=== PATIENT | male | born 1940 | race Hispanic/Latino ===

== ENCOUNTER → 2019-06-25 | Outpatient (CLI) | payer MEDICARE, OTHER ==
[~2019-06-25] MED LIST: AMOX-429 PO; ASPI-555 PO; ATOR40TA69 PO; BRIM5DRO4 OU; CARB15DR OU; CLOP75TA32 PO; LISI40TA4 PO; VITA1TAB39 PO; [UNRECOGNIZED DRUG - OTHER] PO
== END | disposition home or self-care (01) ==
LOC: RAH 07:11
PROVIDERS: ATTEND Internal Medicine Cardiovascular Disease
DX: I70.0 Atherosclerosis of aorta (principal); I25.10 Atherosclerotic heart disease of native coronary artery without angina pectoris
CPT/HCPCS: 76775

== ENCOUNTER → 2019-07-08 | Outpatient (CLI) | payer MEDICARE ==
[~2019-07-08] MED LIST changes: -AMOX-429 PO; -ASPI-555 PO; -ATOR40TA69 PO; -BRIM5DRO4 OU; -CARB15DR OU; -CLOP75TA32 PO; +IOHEXOL-350 75 ML VIAL IV ONE; -LISI40TA4 PO; -VITA1TAB39 PO; -[UNRECOGNIZED DRUG - OTHER] PO
== END | disposition home or self-care (01) ==
LOC: RAH 08:56
PROVIDERS: ATTEND Internal Medicine Cardiovascular Disease
DX: I25.10 Atherosclerotic heart disease of native coronary artery without angina pectoris (principal); I71.4 Abdominal aortic aneurysm, without rupture; I65.29 Occlusion and stenosis of unspecified carotid artery; Z95.1 Presence of aortocoronary bypass graft
CPT/HCPCS: 70496; 70498; Q9967

== ENCOUNTER 2019-08-06 08:00 | Inpatient (IN) | payer MEDICARE ==
[~2019-08-06] VITALS: Ht 172.7 cm; Wt 65.1 kg
[2019-08-06 09:08] LABS: BASOPHILS % (AUTO) 2.6 % (0.0-5.0); EOSINOPHILS % (AUTO) 6.4 % (0.0-8.0); HEMATOCRIT 38.2 % (42-54); LYMPHOCYTES % (AUTO) 34.1 % (21.0-51.0); MEAN CORPUSCULAR HGB CONC 33.7 g/dL (32.0-36.0); MEAN CORPUSCULAR VOLUME 95.1 fL (79-99); MONOCYTES % (AUTO) 8.1 % (3.0-13.0); NEUTROPHILS % (AUTO) 48.8 % (40.0-77.0); NUCLEATED RED BLOOD CELLS 0.1 % (0.0-0.19); PLATELET COUNT (AUTO) 214 K/uL (130-400); RED BLOOD CELL COUNT(AUTO) 4.01 MIL/uL (4.50-6.20); RED CELL DISTRIBUTION WIDTH 14.7 % (11.0-15.5); WHITE BLOOD COUNT (AUTO) 4.2 K/uL (4.8-10.8)
[2019-08-06 09:09] VITALS: BP 153/73
[2019-08-06 09:14] LABS: CREATININE 0.7 mg/dL (0.5-1.5); POTASSIUM 4.1 mmol/L (3.5-5.1)
[2019-08-06 09:24] LABS: INR 1.14 (0.85-1.15); PARTIAL THROMBOPLASTIN TIME 33.7 SEC (26.3-35.5); PROTHROMBIN TIME 11.9 SEC (9.6-11.6)
[2019-08-06 09:30] LABS: APPEARANCE,URINE Clear (CLEAR); BILIRUBIN,URINE Negative (NEGATIVE); COLOR,URINE Yellow (YELLOW); GLUCOSE, URINE (UA) Negative (NEGATIVE); KETONES,URINE Negative (NEGATIVE); LEUKOCYTE ESTERASE ,URINE Negative (NEGATIVE); NITRATE,URINE Negative (NEGATIVE); OCCULT BLOOD,URINE Trace (NEGATIVE); PROTEIN,URINE Negative (NEGATIVE)
[2019-08-06 09:48] LABS: BACTERIA,URINE Rare /HPF (None Seen); RBC,URINE 0-1 /HPF (0-1); SQUAMOUS EPITHELIAL CELL,UR Rare /HPF (0-2); WBC,URINE 0-1 /HPF (0-1)
[2019-08-06] MEDS ORDERED: ASPI-555 PO (10:12)
[2019-08-06] MEDS ORDERED: CARB15DR OU (10:12)
[2019-08-06] MEDS ORDERED: CLOP75TA32 PO (10:12)
[2019-08-06] MEDS ORDERED: [UNRECOGNIZED DRUG - OTHER] PO (10:12)
[2019-08-06] MEDS ORDERED: LISI40TA4 PO (10:12)
[2019-08-06] MEDS ORDERED: AMOX-429 PO (10:12)
[2019-08-06] MEDS ORDERED: VITA1TAB39 PO (10:12)
[2019-08-06] MEDS ORDERED: BRIM5DRO4 OU (10:12)
[2019-08-06] MEDS ORDERED: ATOR40TA69 PO (10:12)
[2019-08-06] MEDS ORDERED: SODIUM CHLORIDE 0.9% 500ML 500 ML IV SCH (13:15)
--- NOTE | 2019-08-07 10:57 | NUR ---
CLARIFICATION PER CHRIS OF [facility], DR. HUA BACK UP FOR PROCEDURE.
[2019-08-08] VITALS (83 sets, daily range): BP systolic 102–166; BP diastolic 42–92
[2019-08-08] MEDS ORDERED: SODIUM CHLORIDE 0.9% 1000ML 1,000 ML IV ONE (05:54)
--- NOTE | 2019-08-08 06:15 | NUR ---
POTENTIAL FOR INFECTION: SHAVED FROM CHEST TO BILATERAL GROIN AND BILATERAL UPPER LEGS PER EUNICE COOK, FOLLOWED BY WIPING WITH JOSE 2% CHLORHEXIDINE GLUCONATE CLOTH PATIENTS PRE-OP SKIN PREP.
[2019-08-08] MEDS ORDERED: LIDOCAINE PF 2% 5ML ABBOJECT ONE (06:37)
[2019-08-08] MEDS ORDERED: PROPOFOL 10 MG/ML 20ML VIAL IV ONE (06:37)
[2019-08-08] MEDS ORDERED: SUCCINYLCHOLINE 200MG/10ML SYR ONE (06:37)
[2019-08-08] MEDS ORDERED: ROCURONIUM 10MG/1ML SYR 10 MG/ML ML ONE ×2 (06:37→06:39)
[2019-08-08] MEDS ORDERED: GLYCOPYRROLATE 1 MG/5 ML SYRINGE ONE (06:37)
[2019-08-08] MEDS ORDERED: NOREPINEPHRINE BITARTRATE 1 MG/1 ML ML IV ONE ×2 (06:38→06:39)
[2019-08-08] MEDS ORDERED: HEPARIN SODIUM 1000UNIT/ML 10ML VIAL ONE ×2 (06:38→07:29)
[2019-08-08] MEDS ORDERED: FENTANYL CITRATE PF 50 MCG/1 ML 2ML VIAL ONE (06:38)
[2019-08-08] MEDS ORDERED: NEOSTIGMINE 5MG/5ML SYR IV ONE (06:39)
[2019-08-08] MEDS ORDERED: BACITRACIN 50,000 UNIT VIAL ONE (07:16)
[2019-08-08] MEDS ORDERED: CEFAZOLIN SODIUM 1 GM VIAL ONE (07:31)
[2019-08-08] MEDS ORDERED: IODIXANOL 320 MG/ML 100 ML VIAL ONE (07:31)
[2019-08-08] MEDS ORDERED: ATROPINE SULFATE 0.1 MG/ML 10 ML SYG IVP ONE (08:42)
[2019-08-08] MEDS ORDERED: NITROGLYCERIN 50 MG/D5% WATER 1 BOT IV PRN (09:30)
[2019-08-08] MEDS ORDERED: ACETAMINOPHEN-CODEINE 300/30MG TAB PO PRN ×2 (09:30)
[2019-08-08] MEDS ORDERED: ONDANSETRON HCL 4 MG/2 ML VIAL IVP PRN (09:30)
--- NOTE | 2019-08-08 09:51 | NUR ---
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 DRESSING TO LEFT SIDE OF NECK WITH A SMALL STAIN, RAMAH NAVAJO CHAPTER AND DATED. SLIGHT SWELLING NOTED TO SITE, NO HEMATOMA OR BLEEDING. SITE TO RT GROIN AREA WITH DRESSING IN PLACE, SLIGHT STAIN NOTED TO SITE, CIRCLED, TIME, AND DATED. AAOX3, UNLABORED RESPIRATIONS NOTED, 100% NRM
[2019-08-08] MEDS: BRIMONIDINE TARTRATE 0.2% 5 ML BOTTLE OU SCH (09:59)
[2019-08-08] MEDS: SODIUM CHLORIDE 0.9% 1000ML 1,000 ML IV SCH ×2 (10:32→20:19)
[2019-08-08] MEDS: FISH OIL 1000 MG/CAP PO SCH (11:58)
[2019-08-08] MEDS: VITAMIN B COMPLEX 1 CAPSULE PO SCH (11:58)
[2019-08-08] MEDS: PANTOPRAZOLE SODIUM 40 MG TABLET.DR PO SCH (11:58)
[2019-08-08] MEDS: NOREPINEPHRINE 4MG/NS 250ML 250 ML IV PRN (13:15)
--- NOTE | 2019-08-08 14:30 | NUR ---
DISCONTINUED A-LINE, CATHETER INTACT, APPLIED PRESSURE TO SITE X5 MINS, COVERED WITH 4X4 GAUZE, AND SECURED WITH OPSITE. DISCONTINUED FARRAR, CATHETER INTACT, NOTED TOTAL OF 700 ML OF CLEAR YELLOW URINE.
[2019-08-08] MEDS: CEFAZOLIN SODIUM 1 GM VIAL IVP SCH (15:28)
[2019-08-08] MEDS: ATORVASTATIN CALCIUM 40 MG TABLET PO SCH (20:18)
[2019-08-08] MEDS: AMOXICILLIN/POTASSIUM CLAV 875-125 TABLET PO SCH (20:18)
[2019-08-08] MEDS: ARTIFICAL TEARS SOL 15 ML OU SCH (20:18)
[2019-08-09] VITALS (42 sets, daily range): BP systolic 88–163; BP diastolic 46–112
[2019-08-09] MEDS: CEFAZOLIN SODIUM 1 GM VIAL IVP SCH (00:13)
[2019-08-09 03:56] LABS: HEMATOCRIT 31.9 % (42-54); MEAN CORPUSCULAR HEMOGLOBIN 31.8 pg (27.0-33.0); MEAN CORPUSCULAR HGB CONC 34.3 g/dL (32.0-36.0); MEAN CORPUSCULAR VOLUME 92.8 fL (79-99); NUCLEATED RED BLOOD CELLS 0.1 % (0.0-0.19); PLATELET COUNT (AUTO) 183 K/uL (130-400); RED BLOOD CELL COUNT(AUTO) 3.43 MIL/uL (4.50-6.20); RED CELL DISTRIBUTION WIDTH 14.5 % (11.0-15.5); WHITE BLOOD COUNT (AUTO) 6.8 K/uL (4.8-10.8)
[2019-08-09 04:03] LABS: CREATININE 0.7 mg/dL (0.5-1.5); POTASSIUM 3.7 mmol/L (3.5-5.1)
[2019-08-09] MEDS: PANTOPRAZOLE SODIUM 40 MG TABLET.DR PO SCH (06:18)
[2019-08-09] MEDS: NOREPINEPHRINE 4MG/NS 250ML 250 ML IV PRN (06:19)
[2019-08-09] MEDS: CLOPIDOGREL BISULFATE 75 MG TAB PO SCH (08:25)
[2019-08-09] MEDS: AMOXICILLIN/POTASSIUM CLAV 875-125 TABLET PO SCH ×2 (08:25→20:53)
[2019-08-09] MEDS: ASPIRIN 81 MG EC TAB PO SCH (08:25)
[2019-08-09] MEDS: VITAMIN B COMPLEX 1 CAPSULE PO SCH (08:25)
[2019-08-09] MEDS: FISH OIL 1000 MG/CAP PO SCH (08:26)
[2019-08-09] MEDS: BRIMONIDINE TARTRATE 0.2% 5 ML BOTTLE OU SCH (08:26)
[2019-08-09] MEDS ORDERED: LISINOPRIL 40 MG TABLET PO SCH (09:00)
--- NOTE | 2019-08-09 18:47 | NUR ---
cm note met with patient and states resides at home with spouse, independent with ambulation and adls and self care. no dme. . states no dc needs. pt drives.dc plan is back home. can assist for any dc needs. Addendum: 08/09/19 at 1847 by COLUMBA MENDES CM Amended: Links added.
[2019-08-09] MEDS: ATORVASTATIN CALCIUM 40 MG TABLET PO SCH (20:53)
[2019-08-09] MEDS: ARTIFICAL TEARS SOL 15 ML OU SCH (20:56)
[2019-08-10] VITALS (15 sets, daily range): BP systolic 99–152; BP diastolic 43–68
[2019-08-10 03:45] LABS: HEMATOCRIT 29.4 % (42-54); MEAN CORPUSCULAR HGB CONC 34.5 g/dL (32.0-36.0); MEAN CORPUSCULAR VOLUME 92.7 fL (79-99); NUCLEATED RED BLOOD CELLS 0.1 % (0.0-0.19); PLATELET COUNT (AUTO) 144 K/uL (130-400); RED BLOOD CELL COUNT(AUTO) 3.17 MIL/uL (4.50-6.20); RED CELL DISTRIBUTION WIDTH 14.3 % (11.0-15.5); WHITE BLOOD COUNT (AUTO) 6.3 K/uL (4.8-10.8)
[2019-08-10 03:55] LABS: CREATININE 0.6 mg/dL (0.5-1.5); POTASSIUM 3.4 mmol/L (3.5-5.1)
[2019-08-10 04:13] LABS: BAND NEUTROPHILS % (MANUAL) 2 % (0-2); EOSINOPHILS % (MANUAL) 2 % (1-6); LYMPHOCYTES % (MANUAL) 22 % (22-44); MAN.DIFF COMMENT-IMPRESSION MANUAL DIFFERENTIAL; MONOCYTES % (MANUAL) 4 % (2-9); PLATELET MORPHOLOGY COMMENT ADEQUATE; SEGMENTED NEUTROPHILS % 70 % (40-70)
[2019-08-10] MEDS: PANTOPRAZOLE SODIUM 40 MG TABLET.DR PO SCH (06:39)
[2019-08-10] MEDS: AMOXICILLIN/POTASSIUM CLAV 875-125 TABLET PO SCH (08:34)
[2019-08-10] MEDS: VITAMIN B COMPLEX 1 CAPSULE PO SCH (08:34)
[2019-08-10] MEDS: FISH OIL 1000 MG/CAP PO SCH (08:34)
[2019-08-10] MEDS: ASPIRIN 81 MG EC TAB PO SCH (08:35)
[2019-08-10] MEDS: CLOPIDOGREL BISULFATE 75 MG TAB PO SCH (08:35)
[2019-08-10] MEDS: BRIMONIDINE TARTRATE 0.2% 5 ML BOTTLE OU SCH (08:37)
--- NOTE | 2019-08-10 15:41 | NUR ---
PATIENT'S DAUGHTER HERE TO TAKE PATIENT AND PATIENT'S HOME. 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 EDUCATION DONE WITH PATIENT AND PATIENT'S DAUGHTER. BOTH ABLE TO TEACH BACK SEEING DR Osiel MCMANUS FOR FOLLOW UP LATER THIS WEEK, HOLDING LISINOPRIL UNTIL DR Osiel MCMANUS RESTARTS IT AND TO RETURN TO THE HOSPITAL IF HE HAS FEVER, BLEEDING OR SWELLING TO SURGICAL SITE. NO QUESTIONS AT THIS TIME.
--- NOTE | 2019-08-10 16:02 | NUR ---
PATIENT TAKEN TO PRIVATE CAR BY PCP WITH PATIENT'S DAUGHTER AND SPOUSE. DAUGHTER VERIFIED ALL BELONGINGS ARE LEAVING WITH THEM.
== END 2019-08-10 16:14 | disposition home or self-care (01) | DRG 36 ==
LOC: EDSTATUS 08:00 → DAHIP 08-08 05:36 → 2BH 08-08 10:02
PROVIDERS: ADMIT Internal Medicine; ATTEND Internal Medicine
PROC: 037L3DZ Dilation of Left Internal Carotid Artery with Intraluminal Device, Percutaneous Approach (ICD-10-PCS; principal; 2019-08-08)
PROC: B3141ZZ Fluoroscopy of Left Common Carotid Artery using Low Osmolar Contrast (ICD-10-PCS; 2019-08-08)
DX: I65.22 Occlusion and stenosis of left carotid artery (principal); I10 Essential (primary) hypertension; E78.5 Hyperlipidemia, unspecified; K21.9 Gastro-esophageal reflux disease without esophagitis; R00.1 Bradycardia, unspecified; M19.90 Unspecified osteoarthritis, unspecified site; E11.51 Type 2 diabetes mellitus with diabetic peripheral angiopathy without gangrene; I25.10 Atherosclerotic heart disease of native coronary artery without angina pectoris; Z95.1 Presence of aortocoronary bypass graft; Z79.899 Other long term (current) drug therapy
CPT/HCPCS: 36415; 37215; 71045; 80048; 81001; 82948; 85025; 85027; 85347; 85610; 85730; 86850; 86900; 86901; 86922; 93005; A4344; C1725; C1769; G0378; J0330; J0461; J0690; J1644; J2001; J2704; J2710; J3010; J3490; J7030; Q9967